=== PATIENT | male | born 1950 | race Caucasian/White ===

== ENCOUNTER 2017-09-26 19:29 | Inpatient (IN) | payer MEDICARE, OTHER ==
[~2017-09-26] VITALS: Ht 180.3 cm; Wt 102.0 kg
[~2017-09-26 19:29] MED LIST: DIAZ10TA PO; HYDR-569 PO; MECL25TA3 PO; NO HOME MEDS; ONDA4TAB6 PO
[2017-09-26 20:04] LABS: BASOPHILS % (AUTO) 0 % (0-1); EOSINOPHILS # (AUTO) 0.5 X10'3 (0-0.9); EOSINOPHILS % (AUTO) 4.9 % (0-6); HEMATOCRIT 45.8 % (42.0-52.0); HEMOGLOBIN 16.1 g/dl (14.0-17.9); LYMPHOCYTES # (AUTO) 1.7 X10'3 (1.1-4.8); MEAN CORPUSCULAR HEMOGLOBIN 35.5 PG (27.0-31.0); MEAN CORPUSCULAR HGB CONC 35.1 % (33.0-36.5); MEAN CORPUSCULAR VOLUME 101.2 FL (78-98); MEAN PLATELET VOLUME 7.3 FL (7.4-10.4); MONOCYTES # (AUTO) 0.9 X10'3 (0-0.9); MONOCYTES % (AUTO) 8.3 % (2-12); NEUTROPHILS # (AUTO) 7.2 X10'3 (1.8-7.7); NEUTROPHILS % (AUTO) 69.8 % (42-75); PLATELET COUNT 218 X10'3 (140-440); RED BLOOD COUNT 4.53 X10'6 (4.70-6.10); RED CELL DISTRIBUTION WIDTH 12.7 % (11.5-14.5); WHITE BLOOD COUNT 10.3 X10'3 (4.5-11.0)
[2017-09-26 20:27] LABS: PARTIAL THROMBOPLASTIN TIME 25 SECONDS (22-32); PROTHROMBIN TIME 10.5 SECONDS (9.0-12.0)
[2017-09-26 20:32] LABS: ALANINE AMINOTRANSFERASE 46 U/L (12-78); ALBUMIN 3.8 G/DL (3.4-5.0); ALKALINE PHOSPHATASE 110 IU/L (46-116); ANION GAP 14 (8-16); ASPARTATE AMINO TRANSFERASE 35 U/L (10-37); BILIRUBIN,TOTAL 0.3 MG/DL (0.1-1.0); BLOOD UREA NITROGEN 18 MG/DL (7-18); BUN/CREATININE RATIO 17.8 (5.4-32.0); CALCIUM 9.6 MG/DL (8.5-10.1); CHLORIDE 101 MMOL/L (99-107); CREATININE 1.01 MG/DL (0.60-1.10); GLUCOSE 100 MG/DL (70-104); POTASSIUM 3.8 MMOL/L (3.5-5.1); SODIUM 139 MMOL/L (135-145); TOTAL CARBON DIOXIDE 23.9 MMOL/L (24-32); TOTAL PROTEIN 7.6 G/DL (6.4-8.2); eGFR 74 ML/MIN
[2017-09-26] MEDS ORDERED: temazepam 15mg capsule PO PRN (21:00)
[2017-09-26] MEDS ORDERED: HYDROcodone/acetaminophen 5mg/325mg tablet PO PRN ×2 (22:00)
[2017-09-26] MEDS ORDERED: meclizine 12.5mg tablet PO PRN (22:00)
[2017-09-26] MEDS ORDERED: HYDROmorphone inj. 0.5 MG/0.5 ML DISP.SYRIN IV PRN ×2 (22:00)
[2017-09-26] MEDS ORDERED: HYDROcodone/acetaminophen 10/325mg tab PO PRN (22:00)
[2017-09-26] MEDS ORDERED: metoclopramide 5 mg/ml inj IV PRN (22:00)
[2017-09-26] MEDS ORDERED: diazepam 5mg tablet PO PRN (22:00)
[2017-09-26] MEDS ORDERED: magnesium hydroxide 30ml (MOM) UD suspension PO PRN (22:00)
[2017-09-26] MEDS ORDERED: bisacodyl 10mg suppository rectal RC PRN (22:00)
[2017-09-26] MEDS ORDERED: ondansetron 4mg rapidly disintigrating tab PO PRN (22:00)
[2017-09-26] MEDS ORDERED: morphine 2 MG/ML inj. syringe IV PRN ×2 (22:00)
[2017-09-26] MEDS ORDERED: acetaminophen 325mg tablet PO PRN ×2 (22:00)
[2017-09-26] MEDS ORDERED: diphenhydrAMINE 25mg capsule PO PRN (22:00)
[2017-09-26] MEDS ORDERED: mag hydrox/Alum hydrox/simeth 30ml oral suspension PO PRN (22:00)
[2017-09-26] MEDS ORDERED: diphenhydrAMINE 50 mg/ml inj IV PRN (22:00)
[2017-09-26] MEDS ORDERED: ondansetron/PF 4mg/2ml inj IV PRN (22:00)
[2017-09-26] MEDS ORDERED: acetaminophen 650mg rectal suppository RC PRN (22:00)
[2017-09-26] MEDS ORDERED: CYAN-19 PO (22:12)
[2017-09-26] MEDS ORDERED: LISI40TA4 PO (22:12)
[2017-09-26] MEDS ORDERED: HYDR12.55 PO (22:12)
[2017-09-26] MEDS ORDERED: METO50TA17 PO (22:12)
[2017-09-26] MEDS: cefTRIAXone 1g/NS 100ml IVPB 100 ML IV SCH (22:51)
[2017-09-26] MEDS: enoxaparin 100mg/ml syringe SUBCUT SCH (22:51)
[2017-09-26] MEDS: normal saline 1000ml 1,000 ML IV SCH (22:51)
[2017-09-26 23:17] LABS: HEMOGLOBIN A1C 5.6 % (4.5-6.2)
[2017-09-26 23:20] VITALS: BP 133/107
[2017-09-26 23:32] LABS: MAGNESIUM 1.6 MG/DL (1.5-2.4)
[2017-09-27] MEDS ORDERED: nicotine 21mg patch - 24 hr TD ONE (00:10)
[2017-09-27] MEDS: azithromycin 250mg tablet PO SCH ×2 (00:13→07:50)
[2017-09-27 02:33] LABS: BASOPHILS % (AUTO) 0.4 % (0-1); EOSINOPHILS # (AUTO) 0.6 X10'3 (0-0.9); EOSINOPHILS % (AUTO) 6.8 % (0-6); HEMATOCRIT 44.4 % (42.0-52.0); HEMOGLOBIN 15.7 g/dl (14.0-17.9); LYMPHOCYTES % (AUTO) 24.6 % (21-51); MEAN CORPUSCULAR HEMOGLOBIN 35.7 PG (27.0-31.0); MEAN CORPUSCULAR HGB CONC 35.3 % (33.0-36.5); MEAN CORPUSCULAR VOLUME 101.1 FL (78-98); MEAN PLATELET VOLUME 7.6 FL (7.4-10.4); MONOCYTES # (AUTO) 0.6 X10'3 (0-0.9); NEUTROPHILS # (AUTO) 4.9 X10'3 (1.8-7.7); NEUTROPHILS % (AUTO) 60.2 % (42-75); PLATELET COUNT 208 X10'3 (140-440); RED BLOOD COUNT 4.39 X10'6 (4.70-6.10); RED CELL DISTRIBUTION WIDTH 12.9 % (11.5-14.5); WHITE BLOOD COUNT 8.1 X10'3 (4.5-11.0)
[2017-09-27 02:35] LABS: CLARITY,URINE CLEAR (Clear); COLOR,URINE YELLOW (Yellow); GLUCOSE, URINE NEGATIVE (Neg); KETONES,URINE NEGATIVE (Neg); LEUKOCYTE ESTERASE ,URINE NEGATIVE (Neg); NITRITES, URINE NEGATIVE (Neg); OCCULT BLOOD,URINE NEGATIVE (Neg); PROTEIN,URINE NEGATIVE (Neg); UROBILINOGEN,URINE 0.2 E.U/dL (0.2-1.0)
[2017-09-27 02:36] LABS: UA COLLECTION TYPE VOIDED
[2017-09-27 02:52] LABS: ALANINE AMINOTRANSFERASE 46 U/L (12-78); ALBUMIN 3.4 G/DL (3.4-5.0); ALBUMIN/GLOBULIN RATIO 0.9 (1.1-1.5); ALKALINE PHOSPHATASE 105 IU/L (46-116); ANION GAP 11 (8-16); ASPARTATE AMINO TRANSFERASE 32 U/L (10-37); BILIRUBIN,TOTAL 0.3 MG/DL (0.1-1.0); BLOOD UREA NITROGEN 16 MG/DL (7-18); BUN/CREATININE RATIO 16.3 (5.4-32.0); CALCIUM 9.5 MG/DL (8.5-10.1); CHLORIDE 102 MMOL/L (99-107); CHOL/HDL RATIO 2.6 (0.00-4.99); CHOLESTEROL 119 MG/DL (0-200); CREATININE 0.98 MG/DL (0.60-1.10); GLUCOSE 100 MG/DL (70-104); HDL CHOLESTEROL 46 MG/DL (35-60); LDL CHOLESTEROL 49 MG/DL (50-100); POTASSIUM 3.6 MMOL/L (3.5-5.1); SODIUM 140 MMOL/L (135-145); TOTAL CARBON DIOXIDE 26.9 MMOL/L (24-32); TOTAL PROTEIN 7.2 G/DL (6.4-8.2); TRIGLYCERIDES 199 MG/DL (20-135); eGFR 77 ML/MIN
[2017-09-27] MEDS ORDERED: aminophylline 250mg/10ml inj. IV PRN (05:45)
[2017-09-27] MEDS ORDERED: nitroGLYCERIN 0.4mg SUBLingual tab SL PRN (05:45)
[2017-09-27] MEDS ORDERED: regadenoson 0.4mg/5ml syringe IV ONE (05:45)
[2017-09-27] MEDS ORDERED: metoprolol tartrate 1mg/ml inj IV PRN (05:45)
[2017-09-27 06:00] VITALS: BP 160/89
[2017-09-27] MEDS: pantoprazole 40mg Tablet.DR PO SCH (07:48)
[2017-09-27] MEDS: docusate sod 100mg capsule PO SCH ×2 (07:49→19:34)
[2017-09-27] MEDS: nicotine 21mg patch - 24 hr TD SCH (07:51)
[2017-09-27] MEDS: cefTRIAXone 1g/NS 100ml IVPB 100 ML IV SCH (07:51)
[2017-09-27] MEDS: enoxaparin 100mg/ml syringe SUBCUT SCH (07:53)
[2017-09-27] MEDS ORDERED: methylPREDNISolone sod succ 125mg/2ml vial IV SCH (08:00)
[2017-09-27 10:00] VITALS: BP 169/88
[2017-09-27] MEDS ORDERED: hyDRALAzine 10mg tablet PO PRN (10:40)
[2017-09-27] MEDS: lisinopril 20mg tablet PO SCH (11:02)
[2017-09-27] MEDS: metoprolol tartrate 50mg tablet PO SCH (11:02)
[2017-09-27] MEDS: HYDROchlorothiazide 12.5mg capsule PO SCH (11:02)
[2017-09-27 18:06] VITALS: BP 138/82
[2017-09-27 18:15] VITALS: BP 138/82
[2017-09-27 22:04] VITALS: BP 134/89
[2017-09-28 06:00] VITALS: BP 148/81
[2017-09-28 06:21] LABS: BASOPHILS % (AUTO) 0.3 % (0-1); EOSINOPHILS % (AUTO) 0.1 % (0-6); HEMATOCRIT 47.1 % (42.0-52.0); HEMOGLOBIN 16.9 g/dl (14.0-17.9); LYMPHOCYTES # (AUTO) 1.1 X10'3 (1.1-4.8); LYMPHOCYTES % (AUTO) 8.1 % (21-51); MEAN CORPUSCULAR HEMOGLOBIN 36.2 PG (27.0-31.0); MEAN CORPUSCULAR HGB CONC 35.8 % (33.0-36.5); MEAN CORPUSCULAR VOLUME 100.9 FL (78-98); MEAN PLATELET VOLUME 7.9 FL (7.4-10.4); MONOCYTES # (AUTO) 1.1 X10'3 (0-0.9); MONOCYTES % (AUTO) 7.6 % (2-12); NEUTROPHILS # (AUTO) 11.7 X10'3 (1.8-7.7); NEUTROPHILS % (AUTO) 83.9 % (42-75); PLATELET COUNT 224 X10'3 (140-440); RED BLOOD COUNT 4.66 X10'6 (4.70-6.10); RED CELL DISTRIBUTION WIDTH 12.9 % (11.5-14.5); WHITE BLOOD COUNT 13.9 X10'3 (4.5-11.0)
[2017-09-28 06:51] LABS: ALANINE AMINOTRANSFERASE 42 U/L (12-78); ALBUMIN 3.6 G/DL (3.4-5.0); ALBUMIN/GLOBULIN RATIO 0.9 (1.1-1.5); ALKALINE PHOSPHATASE 99 IU/L (46-116); ANION GAP 10 (8-16); ASPARTATE AMINO TRANSFERASE 25 U/L (10-37); BILIRUBIN,TOTAL 0.6 MG/DL (0.1-1.0); BLOOD UREA NITROGEN 18 MG/DL (7-18); BUN/CREATININE RATIO 15.7 (5.4-32.0); CALCIUM 9.8 MG/DL (8.5-10.1); CHLORIDE 103 MMOL/L (99-107); CREATININE 1.15 MG/DL (0.60-1.10); GLUCOSE 118 MG/DL (70-104); MAGNESIUM 1.6 MG/DL (1.5-2.4); POTASSIUM 4.1 MMOL/L (3.5-5.1); SODIUM 140 MMOL/L (135-145); TOTAL CARBON DIOXIDE 26.8 MMOL/L (24-32); TOTAL PROTEIN 7.7 G/DL (6.4-8.2); eGFR 64 ML/MIN
[2017-09-28] MEDS: cyanocobalamin 500mcg tablet PO SCH (07:41)
[2017-09-28] MEDS: lisinopril 20mg tablet PO SCH (07:41)
[2017-09-28] MEDS: metoprolol tartrate 50mg tablet PO SCH (07:42)
[2017-09-28] MEDS: HYDROchlorothiazide 12.5mg capsule PO SCH (07:42)
[2017-09-28] MEDS: pantoprazole 40mg Tablet.DR PO SCH (07:43)
[2017-09-28] MEDS: docusate sod 100mg capsule PO SCH ×2 (07:43→20:00)
[2017-09-28] MEDS: nicotine 21mg patch - 24 hr TD SCH (07:44)
[2017-09-28] MEDS: enoxaparin 40mg/0.4ml syringe SUBCUT SCH (07:45)
[2017-09-28 10:00] VITALS: BP 123/57
[2017-09-28] MEDS ORDERED: pneumococcal 23-VAL P-sac vacc 25 mcg/0.5ml vial IMVAC ONE (10:00)
[2017-09-28] MEDS ORDERED: FLU VACC QS2017-18 36MOS UP/PF 60 MCG/0.5 ML SYRINGE IMVAC ONE (10:00)
[2017-09-28 18:44] VITALS: BP 137/80
[2017-09-28] MEDS: normal saline 1000ml 1,000 ML IV SCH (20:01)
[2017-09-28 22:20] VITALS: BP 127/72
[2017-09-29] VITALS (7 sets, daily range): BP systolic 124–150; BP diastolic 70–82
[2017-09-29 07:00] LABS: BASOPHILS % (AUTO) 0.3 % (0-1); EOSINOPHILS # (AUTO) 0.3 X10'3 (0-0.9); EOSINOPHILS % (AUTO) 3.6 % (0-6); HEMATOCRIT 48.7 % (42.0-52.0); HEMOGLOBIN 16.9 g/dl (14.0-17.9); LYMPHOCYTES % (AUTO) 21.2 % (21-51); MEAN CORPUSCULAR HEMOGLOBIN 35.4 PG (27.0-31.0); MEAN CORPUSCULAR HGB CONC 34.8 % (33.0-36.5); MEAN CORPUSCULAR VOLUME 101.8 FL (78-98); MEAN PLATELET VOLUME 7.6 FL (7.4-10.4); MONOCYTES # (AUTO) 0.8 X10'3 (0-0.9); MONOCYTES % (AUTO) 8.1 % (2-12); NEUTROPHILS # (AUTO) 6.4 X10'3 (1.8-7.7); NEUTROPHILS % (AUTO) 66.8 % (42-75); PLATELET COUNT 218 X10'3 (140-440); RED BLOOD COUNT 4.78 X10'6 (4.70-6.10); WHITE BLOOD COUNT 9.6 X10'3 (4.5-11.0)
[2017-09-29 07:17] LABS: ALANINE AMINOTRANSFERASE 99 U/L (12-78); ALBUMIN 3.8 G/DL (3.4-5.0); ALKALINE PHOSPHATASE 99 IU/L (46-116); ANION GAP 10 (8-16); ASPARTATE AMINO TRANSFERASE 95 U/L (10-37); BILIRUBIN,TOTAL 0.6 MG/DL (0.1-1.0); BLOOD UREA NITROGEN 21 MG/DL (7-18); BUN/CREATININE RATIO 19.1 (5.4-32.0); CALCIUM 9.8 MG/DL (8.5-10.1); CHLORIDE 102 MMOL/L (99-107); GLUCOSE 90 MG/DL (70-104); MAGNESIUM 1.9 MG/DL (1.5-2.4); POTASSIUM 4.2 MMOL/L (3.5-5.1); SODIUM 139 MMOL/L (135-145); TOTAL CARBON DIOXIDE 26.6 MMOL/L (24-32); TOTAL PROTEIN 7.7 G/DL (6.4-8.2); eGFR 67 ML/MIN
[2017-09-29] MEDS: pantoprazole 40mg Tablet.DR PO SCH (07:30)
[2017-09-29] MEDS: lisinopril 20mg tablet PO SCH (08:00)
[2017-09-29] MEDS: enoxaparin 40mg/0.4ml syringe SUBCUT SCH (08:00)
[2017-09-29] MEDS: HYDROchlorothiazide 12.5mg capsule PO SCH (08:00)
[2017-09-29] MEDS: docusate sod 100mg capsule PO SCH (08:00)
[2017-09-29] MEDS: metoprolol tartrate 50mg tablet PO SCH (08:00)
[2017-09-29] MEDS: cyanocobalamin 500mcg tablet PO SCH (08:00)
[2017-09-29] MEDS ORDERED: fentaNYL/PF 50MCG/1 ML 2ML syringe ONE (09:00)
[2017-09-29] MEDS ORDERED: diphenhydrAMINE 50 mg/ml inj ONE (09:00)
[2017-09-29] MEDS ORDERED: midazolam 2 mg/2 ml injection ONE (09:01)
[2017-09-29] MEDS ORDERED: proCHLORperazine 10 MG/2 ml inj IV PRN (10:10)
[2017-09-29] MEDS ORDERED: HYDROcodone/acetaminophen 10/325mg tab PO PRN ×2 (10:10)
[2017-09-29] MEDS ORDERED: HYDROcodone/acetaminophen 5mg/325mg tablet PO PRN ×2 (10:10)
[2017-09-29] MEDS ORDERED: ondansetron/PF 4mg/2ml inj IV PRN ×2 (10:10)
[2017-09-29] MEDS ORDERED: OXAZEpam 15mg capsule PO PRN ×2 (10:10)
[2017-09-29] MEDS ORDERED: normal saline 1000ml 1,000 ML IV SCH (10:10)
[2017-09-29] MEDS: nicotine 21mg patch - 24 hr TD SCH (10:44)
[2017-09-29] MEDS ORDERED: lisinopril 20mg tablet PO ONE (14:55)
[2017-09-29] MEDS ORDERED: LISI-600 PO (17:59)
[2017-09-30] MEDS ORDERED: lisinopril 20mg tablet PO SCH ×2 (08:00)
== END 2017-09-29 18:20 | disposition home or self-care (01) | DRG 287 ==
LOC: ER 19:30 → ED HOLD 22:00 → ORTHO 4S 23:10
PROVIDERS: ADMIT Family Medicine; ATTEND Internal Medicine
PROC: 4A023N7 Measurement of Cardiac Sampling and Pressure, Left Heart, Percutaneous Approach (ICD-10-PCS; principal; 2017-09-29)
PROC: B2111ZZ Fluoroscopy of Multiple Coronary Arteries using Low Osmolar Contrast (ICD-10-PCS; 2017-09-29)
PROC: B2151ZZ Fluoroscopy of Left Heart using Low Osmolar Contrast (ICD-10-PCS; 2017-09-29)
PROC: B41F1ZZ Fluoroscopy of Right Lower Extremity Arteries using Low Osmolar Contrast (ICD-10-PCS; 2017-09-29)
DX: R07.9 Chest pain, unspecified (principal); J44.1 Chronic obstructive pulmonary disease with (acute) exacerbation; R55 Syncope and collapse; I10 Essential (primary) hypertension; E86.0 Dehydration; F10.10 Alcohol abuse, uncomplicated; F17.210 Nicotine dependence, cigarettes, uncomplicated; Z79.899 Other long term (current) drug therapy; Z23 Encounter for immunization
CPT/HCPCS: 36415; 71045; 80053; 80061; 81003; 83036; 83735; 83880; 84443; 84484; 85025; 85379; 85610; 85730; 87070; 90732; 93005; 93458; 93880; 94667; 94760; 99152; 99153; 99285; A4620; A6257; C1760; C1769; J0280; J0696; J1200; J1650; J2250; J2930; J3010; J3420; J3490; J7030; Q0163; Q2037

== ENCOUNTER 2017-09-29 08:57 | Outpatient (CLI) | payer MEDICARE, OTHER ==
[~2017-09-29 08:57] MED LIST changes: +CYAN-19 PO; -DIAZ10TA PO; -HYDR-569 PO; +HYDR12.55 PO; +LIDOcaine 1%/PF (10mg/ml) 5ml vial ONE; +LISI40TA4 PO; -MECL25TA3 PO; +METO50TA17 PO; -NO HOME MEDS; -ONDA4TAB6 PO; +heparin 1,000 UNITS/NS 500ml 500 ML ONE; +iohexol 350 MG/ML 50ML vial IV ONE; +iohexol 350MG/ML 100ml bottle IV ONE
[2017-09-29] MEDS ORDERED: LISI-600 PO (17:59)
== END 2017-09-29 08:58 | disposition home or self-care (01) ==
LOC: EDSEX → SSTAY O 08:57
PROVIDERS: ATTEND Internal Medicine Cardiovascular Disease
DX: R94.39 Abnormal result of other cardiovascular function study (principal)
CPT/HCPCS: J1644; J2001; Q9967

== ENCOUNTER 2019-08-14 23:27 | Emergency (ER) | payer MEDICARE, OTHER ==
[~2019-08-14] VITALS: Ht 180.3 cm; Wt 104.0 kg
[~2019-08-14 23:27] MED LIST changes: -CYAN-19 PO; +CYAN-51 PO; -HYDR12.55 PO; -LIDOcaine 1%/PF (10mg/ml) 5ml vial ONE; +LISI-600 PO; -LISI40TA4 PO; -heparin 1,000 UNITS/NS 500ml 500 ML ONE; -iohexol 350 MG/ML 50ML vial IV ONE; -iohexol 350MG/ML 100ml bottle IV ONE
[2019-08-15 00:01] LABS: ALANINE AMINOTRANSFERASE 42 U/L (12-78); ALBUMIN 3.5 G/DL (3.4-5.0); ALKALINE PHOSPHATASE 108 IU/L (46-116); ANION GAP 11 (8-16); ASPARTATE AMINO TRANSFERASE 33 U/L (10-37); BILIRUBIN,TOTAL 0.3 MG/DL (0.1-1.0); BLOOD UREA NITROGEN 10 MG/DL (7-18); BUN/CREATININE RATIO 11.5 (5.4-32.0); CALCIUM 8.2 MG/DL (8.5-10.1); CHLORIDE 103 MMOL/L (99-107); CREATININE 0.87 MG/DL (0.60-1.10); GLUCOSE 108 MG/DL (70-104); POTASSIUM 3.7 MMOL/L (3.5-5.1); SODIUM 138 MMOL/L (135-145); TOTAL CARBON DIOXIDE 24.5 MMOL/L (24-32); eGFR 88 ML/MIN
[2019-08-15 00:05] LABS: BASOPHILS # (AUTO) 0.1 X10'3 (0-0.2); BASOPHILS % (AUTO) 0.9 % (0-1); EOSINOPHILS # (AUTO) 0.6 X10'3 (0-0.9); EOSINOPHILS % (AUTO) 5.8 % (0-6); HEMATOCRIT 47.6 % (42.0-52.0); LYMPHOCYTES # (AUTO) 2.7 X10'3 (1.1-4.8); LYMPHOCYTES % (AUTO) 27.2 % (21-51); MEAN CORPUSCULAR HEMOGLOBIN 37.6 PG (27.0-31.0); MEAN CORPUSCULAR HGB CONC 35.7 g/dL (33.0-36.5); MEAN CORPUSCULAR VOLUME 105.4 FL (78-98); MEAN PLATELET VOLUME 7.3 FL (7.4-10.4); MONOCYTES # (AUTO) 1.1 X10'3 (0-0.9); MONOCYTES % (AUTO) 11.1 % (2-12); NEUTROPHILS # (AUTO) 5.5 X10'3 (1.8-7.7); PLATELET COUNT 200 X10'3 (140-440); RED BLOOD COUNT 4.51 X10'6 (4.70-6.10); RED CELL DISTRIBUTION WIDTH 14.4 % (11.5-14.5)
--- NOTE | 2019-08-15 00:06 | NUR ---
Connie, patient's daughter: home [phone], cell [phone].
--- NOTE | 2019-08-15 00:07 | NUR ---
Leif, Patient's neighbor and close friend contact number [phone].
[2019-08-15 00:30] LABS: LIPASE 233 U/L (73-393)
--- NOTE | 2019-08-15 00:30 | NUR ---
PATIENT IN BED EYES CLOSED COVERS ON RR EVEN UN LABORED NO OBSERVABLE S/S OF ACUTE STRESS AT THIS TIME WILL CONTINUE TO MONITOR
[2019-08-15] MEDS ORDERED: ipratropium/albuterol 3ml nebule NEB ONE (00:35)
[2019-08-15] MEDS ORDERED: predniSONE 20 mg tablet PO ONE (00:35)
[2019-08-15] MEDS ORDERED: METO50TA17 PO (02:00)
[2019-08-15] MEDS ORDERED: LISI-600 PO (02:00)
--- NOTE | 2019-08-15 02:11 | NUR ---
PATIENT IN BED EYES CLOSED RR EVEN UN LABORED COVERS ON NO OBSERVABLE S/S OF ACUTE STRESS AT THIS TIME
[2019-08-15 02:50] VITALS: BP 111/59
== END 2019-08-15 03:14 | disposition home or self-care (01) ==
LOC: ER 23:28
DX: R55 Syncope and collapse (principal); F10.929 Alcohol use, unspecified with intoxication, unspecified; R07.89 Other chest pain; I10 Essential (primary) hypertension; F12.90 Cannabis use, unspecified, uncomplicated; F17.200 Nicotine dependence, unspecified, uncomplicated; Z56.0 Unemployment, unspecified; Z79.899 Other long term (current) drug therapy; Y90.9 Presence of alcohol in blood, level not specified
CPT/HCPCS: 36415; 70450; 71045; 72125; 80053; 83690; 84484; 85025; 85379; 93005; 94640; 99284; J7512; 94760

== ENCOUNTER 2023-03-11 07:03 | Inpatient (IN) | payer MEDICARE, MEDICAID ==
[2023-03-04 16:45] LABS: BILIRUBIN,URINE NEGATIVE (Neg); CLARITY,URINE CLEAR (Clear); COLOR,URINE YELLOW (Yellow); GLUCOSE, URINE >=1000 mg/dl (Neg); KETONES,URINE NEGATIVE (Neg); LEUKOCYTE ESTERASE ,URINE NEGATIVE (Neg); NITRITES, URINE NEGATIVE (Neg); OCCULT BLOOD,URINE NEGATIVE (Neg); PH,URINE 5.5 (4.8-8.0); PROTEIN,URINE NEGATIVE (Neg); UROBILINOGEN,URINE 0.2 E.U/dL (0.2-1.0)
[2023-03-04 16:50] LABS: UA COLLECTION TYPE CLN CATCH MIDSTREAM
[2023-03-04 16:52] LABS: SQUAMOUS EPITHELIAL CELL,UR FEW /LPF (FEW)
[2023-03-04 16:53] LABS: WBC,URINE 0-4 /HPF (0-4)
[2023-03-04 16:54] LABS: RBC,URINE NONE SEEN /HPF (0-2)
[2023-03-04 16:57] LABS: BACTERIA,URINE NONE SEEN /HPF (Neg); BASOPHILS # (AUTO) 0.1 X10'3 (0-0.2); BASOPHILS % (AUTO) 0.8 % (0-1); EOSINOPHILS # (AUTO) 0.4 X10'3 (0-0.9); EOSINOPHILS % (AUTO) 4.9 % (0-6); LYMPHOCYTES # (AUTO) 1.8 X10'3 (1.1-4.8); MEAN CORPUSCULAR HEMOGLOBIN 30.4 PG (27.0-31.0); MEAN CORPUSCULAR HGB CONC 33.6 g/dL (33.0-36.5); MEAN CORPUSCULAR VOLUME 90.4 FL (78-98); MEAN PLATELET VOLUME 7.8 FL (7.4-10.4); MONOCYTES # (AUTO) 0.7 X10'3 (0-0.9); MONOCYTES % (AUTO) 8.5 % (2-12); NEUTROPHILS # (AUTO) 5.8 X10'3 (1.8-7.7); NEUTROPHILS % (AUTO) 65.8 % (42-75); PRE OP HEMATOCRIT 49.5 % (42.0-52.0); PRE OP HEMOGLOBIN 16.6 g/dL (14.0-17.9); PRE OP PLATELET COUNT 255 X10'3 (140-440); PRE OP WHITE BLOOD COUNT 8.8 10'3 (4.8-10.8); RED BLOOD COUNT 5.47 X10'6 (4.70-6.10); RED CELL DISTRIBUTION WIDTH 14.7 % (11.5-14.5)
[2023-03-04 17:01] LABS: ALBUMIN 4.1 G/DL (3.4-5.0); ALBUMIN/GLOBULIN RATIO 1.1 (1.1-1.5); ALKALINE PHOSPHATASE 133 IU/L (46-116); BLOOD UREA NITROGEN 19 MG/DL (7-18); BUN/CREATININE RATIO 18.3 (10.0-20.0); CALCIUM 9.8 MG/DL (8.5-10.1); CHLORIDE 105 MMOL/L (99-107); CREATININE 1.04 MG/DL (0.60-1.10); PRE OP ALT 28 U/L (30-65); PRE OP ANION GAP 12 (8-16); PRE OP AST 16 U/L (10-37); PRE OP BILIRUB, TOTAL 0.5 MG/DL (0.0-1.0); PRE OP GLUCOSE 114 MG/DL (70-104); PRE OP POTASSIUM 3.7 MMOL/L (3.4-5.1); PRE OP SODIUM 143 MMOL/L (135-145); TOTAL CARBON DIOXIDE 25.7 MMOL/L (24-32); eGFR 71 ML/MIN
[2023-03-11] VITALS (20 sets, daily range): BP systolic 105–134; BP diastolic 56–76; PULSE 47–93; RESP 13–64; TEMP 97.6–97.9; O2SAT 94–98
[~2023-03-11] VITALS: Ht 175.3 cm; Wt 110.2 kg
[2023-03-11] MEDS: potassium cl 20mEq in 1/2 NS 1,000 ML IV SCH ×3 (06:40→22:40)
[~2023-03-11 07:03] MED LIST changes: +ALLO100T PO; +CHOL20002 PO; -CYAN-51 PO; +DEXTROSE 15 GM of carb/4 tabs (each vial/BOTTLE has 4 tablets) PO PRN; +DOCUMENT DATE & TIME OF BETA-BLOCKER PO ONE; +EMPA25TA PO; +HYDROcodone/acetaminophen 10/325mg tab PO PRN; +HYDROmorphone 1 mg/ml syringe IV PRN; +HYDROmorphone inj. 0.5 MG/0.5 ML DISP.SYRIN IV PRN; -LISI-600 PO; +LISI5TAB22 PO; +MESSAGE TO PHARMACY PO ONE; +METO50TA16 PO; -METO50TA17 PO; +TRAM50TA2 PO; +VANCOMYCIN 1,500MG inj. 1,500 MG in normal saline 500ml IV soln 300 ML IV ONE; +acetaminophen 325mg tablet PO ONE; +acetaminophen 325mg tablet PO PRN; +bisacodyl 10mg suppository rectal RC PRN; +celeCOXIB 100mg capsule PO ONE; +dextrose 50%-water 50ml dispensing syringe IV PRN; +diphenhydrAMINE 25mg capsule PO PRN; +famotidine 20mg tablet PO ONE; +gabapentin 300mg capsule PO ONE; +glucagon, human recombinant 1mg kit SUBCUT PRN; +insulin Lispro (HumaLOG) vial - multi-dose SQ SCH; +magnesium hydroxide 30ml (MOM) UD suspension PO PRN; +metoclopramide 5 mg/ml inj IV ONE; +naloxone 0.4 mg/ml inj IV PRN; +ondansetron/PF 4mg/2ml inj IV PRN; +oxyCODONE SR 10mg (sust. release) tab PO ONE; +tranexamic acid inj. 1,090 MG in normal saline 100ml IV soln 89.1 ML IV ONE
[2023-03-11] MEDS: aspirin 325mg tablet PO SCH (08:30)
[2023-03-11] MEDS: ringers solution, lacted 1,000 ML IV SCH ×3 (09:19→15:50)
[2023-03-11] MEDS ORDERED: vancomycin 1,000mg inj ONE (09:43)
[2023-03-11] MEDS ORDERED: ROPIVAcaine 0.5% (5mg/ml) 30ml vial ONE ×2 (09:43→10:38)
[2023-03-11] MEDS ORDERED: cloNIDine hcl/PF 100mcg/ml inj ONE (09:43)
[2023-03-11] MEDS ORDERED: epiNEPHrine 1 mg/ml inj ONE (09:43)
[2023-03-11] MEDS ORDERED: ondansetron/PF 4mg/2ml inj IV PRN (10:00)
[2023-03-11] MEDS ORDERED: ringers solution, lacted 1,000 ML IV SCH (10:00)
[2023-03-11] MEDS ORDERED: ROPIVAcaine 0.2%/PF PUMP/bolus 545 ML ADDCANAL SCH (10:00)
[2023-03-11] MEDS ORDERED: proCHLORperazine 10 MG/2 ml inj IV PRN (10:00)
[2023-03-11] MEDS ORDERED: ROPIVAcaine 0.2% (10 MG/5 ML) BOLUS INJECTION ADDCANAL PRN (10:00)
[2023-03-11] MEDS ORDERED: meperidine/PF 25mg/ml syringe IV PRN ×3 (10:00)
[2023-03-11] MEDS ORDERED: morphine 4 MG/ML inj SYRINge IV PRN (10:00)
[2023-03-11] MEDS ORDERED: morphine 2 MG/ML inj. syringe IV PRN (10:00)
[2023-03-11] MEDS ORDERED: fentaNYL/PF 50MCG/1 ML 2ML syringe ONE (10:08)
[2023-03-11] MEDS ORDERED: midazolam 1 mg/ML 2ml injection ONE (10:08)
[2023-03-11] MEDS ORDERED: ePHEDrine 50MG/ML INJ. ONE (10:38)
[2023-03-11] MEDS ORDERED: BUPIVAcaine/PF 7.5mg/ml (0.75%) 10ml vial ONE (10:38)
[2023-03-11] MEDS ORDERED: propofol inj 20 ML IV ONE (10:38)
[2023-03-11] MEDS ORDERED: LIDOcaine 1%/PF 5ML 10 MG/ML VIAL ONE (10:38)
--- NOTE | 2023-03-11 10:45 | NUR ---
CMS NOTE- PT STATES HE SHOWERED X5 DAYS WITH HIBICLENS. MD DOES NOT ORDER MUPIROCIN OINTMENT. PT EDUCATED ON ON-Q. PT HAS BILAT PALPABLE DORSALIS PEDIS PULSES. PT STATES HE READ BOOKLET AND HAS BEEN EDUCATED ON USE OF IS
[2023-03-11] MEDS ORDERED: MIDAZolam 1 MG/ML 5ML VIAL ONE (10:52)
--- NOTE | 2023-03-11 12:20 | NUR ---
Received from OR via BED, accompanied by Anesthesiologist and report given by Anesthesiologist. PATIENT WAKING UP, NO S/S OF PAIN, V/S WNL, SCD ON, 20G TO RUE, ABIEL drsg to LEFT KNEE CDI with ON Q BALL AT 4ML/HR.
--- NOTE | 2023-03-11 13:40 | NUR ---
PATIENT A&OX4, DENIES PAIN, V/S WNL, SCD ON, 20G TO RUE, ABIEL drsg to LEFT KNEE CDI with ON Q BALL AT 4ML/HR. PATIENT TAKEN TO PAS. REPORT GIVEN TO PAS RN WHO HAS TAKEN OVER PATIENT Care. patient also hooked up to monitors in room and has all belongings with him.
--- NOTE | 2023-03-11 14:00 | NUR ---
Patient in room ORTHO 4012. I have received report from Recovery and had the opportunity to ask questions and assume patient care.
[2023-03-11] MEDS: gabapentin 300mg capsule PO SCH ×2 (14:18→20:10)
[2023-03-11] MEDS ORDERED: tranexamic acid inj. 1,090 MG in normal saline 100ml IV soln 100 ML IV ONE (15:00)
--- NOTE | 2023-03-11 18:00 | NUR ---
Patient dtr was upset on how long it took to get patient pain medications. I apologize to her and let her know I had an emergency in another room and I got her him as soon as I could. I educated both dtr and patient on his on que increase. Elevated patient leg and put pillow under ankle. Patient dtr is still unhappy, patient is understandable.
[2023-03-11] MEDS: cefazolin 2gm/D5W 100mL 100 ML IV SCH ×2 (18:08→23:16)
--- NOTE | 2023-03-11 18:59 | NUR ---
Problems reprioritized. Patient report given, questions answered & plan of care reviewed with sybil COLIN.
--- NOTE | 2023-03-11 19:00 | NUR ---
Patient in room ORTHO 4012. I have received report from CRISTI FRIEDMAN and had the opportunity to ask questions and assume patient care.
[2023-03-11] MEDS ORDERED: VANCOMYCIN 1,500MG inj. 1,500 MG in normal saline 500ml IV soln 300 ML IV ONE (20:00)
[2023-03-11] MEDS: ascorbic acid 500mg tablet PO SCH (20:10)
[2023-03-11] MEDS: metoprolol tartrate 50mg tablet PO SCH (20:10)
[2023-03-11] MEDS ORDERED: sennosides 8.6mg tablet PO SCH (21:00)
[2023-03-11] MEDS ORDERED: insulin glargine (Lantus) pen - multi-dose SQ SCH (21:00)
[2023-03-11] MEDS ORDERED: diphenhydrAMINE 25mg capsule PO PRN (21:00)
[2023-03-12 02:00] VITALS: BP 124/60; PULSE 59; RESP 18; TEMP 97.8; O2SAT 94
[2023-03-12] MEDS: HYDROcodone/acetaminophen 10/325mg tab PO PRN ×3 (05:18→16:45)
[2023-03-12] MEDS: potassium cl 20mEq in 1/2 NS 1,000 ML IV SCH (05:22)
--- NOTE | 2023-03-12 06:42 | NUR ---
Problems reprioritized. Patient report given, questions answered & plan of care reviewed with CRISTI Cristina.
[2023-03-12 06:53] VITALS: BP 126/61; PULSE 62; RESP 14; TEMP 98.9; O2SAT 93
[2023-03-12 07:52] LABS: BASOPHILS % (AUTO) 0.2 % (0-1); EOSINOPHILS % (AUTO) 0.1 % (0-6); HEMOGLOBIN 15.4 g/dl (14.0-17.9); LYMPHOCYTES # (AUTO) 0.9 X10'3 (1.1-4.8); LYMPHOCYTES % (AUTO) 4.8 % (21-51); MEAN CORPUSCULAR HEMOGLOBIN 30.2 PG (27.0-31.0); MEAN CORPUSCULAR HGB CONC 33.5 g/dL (33.0-36.5); MEAN CORPUSCULAR VOLUME 90.1 FL (78-98); MEAN PLATELET VOLUME 8.1 FL (7.4-10.4); MONOCYTES # (AUTO) 1.4 X10'3 (0-0.9); MONOCYTES % (AUTO) 7.1 % (2-12); NEUTROPHILS # (AUTO) 16.7 X10'3 (1.8-7.7); NEUTROPHILS % (AUTO) 87.8 % (42-75); PLATELET COUNT 231 X10'3 (140-440); RED CELL DISTRIBUTION WIDTH 14.5 % (11.5-14.5); WHITE BLOOD COUNT 19.1 X10'3 (4.5-11.0)
[2023-03-12 08:00] VITALS: RESP 16
[2023-03-12] MEDS ORDERED: allopurinol 100mg tablet PO SCH (08:00)
[2023-03-12] MEDS ORDERED: multivitamins, therapeutics tablet PO SCH (08:00)
[2023-03-12] MEDS ORDERED: lisinopril 5mg tablet PO SCH (08:00)
[2023-03-12] MEDS: metoprolol tartrate 50mg tablet PO SCH (08:07)
[2023-03-12] MEDS: ascorbic acid 500mg tablet PO SCH (08:07)
[2023-03-12] MEDS: cefazolin 2gm/D5W 100mL 100 ML IV SCH (08:07)
[2023-03-12 08:08] LABS: ANION GAP 12 (8-16); CHLORIDE 104 MMOL/L (99-107); POTASSIUM 4.5 MMOL/L (3.5-5.1); SODIUM 138 MMOL/L (135-145); TOTAL CARBON DIOXIDE 21.7 MMOL/L (24-32)
[2023-03-12] MEDS: aspirin 325mg tablet PO SCH (08:08)
[2023-03-12] MEDS: gabapentin 300mg capsule PO SCH ×2 (08:08→12:13)
[2023-03-12 10:00] VITALS: BP 115/56; PULSE 66; RESP 14; TEMP 98.1; O2SAT 92
--- NOTE | 2023-03-12 11:31 | NUR ---
Joint surgery consult: Pt s/p knee surgery per EMR. Pt seen at bedside and provided written/verbal high protein nutrition education. RD contact also provided and encouraged pt to reach out for any nutrition question or concerns. Addendum: 03/12/23 at [address] Amended: Links added.
[2023-03-12] MEDS ORDERED: LIDOcaine 1%/PF 5ML 10 MG/ML VIAL SQ ONE (12:30)
[2023-03-12] MEDS ORDERED: triamcinolone acetonide 40mg/ml inj IM ONE (12:30)
[2023-03-12] MEDS ORDERED: GABA300C PO (13:44)
[2023-03-12] MEDS ORDERED: DULO30CA52 PO (13:44)
[2023-03-12] MEDS ORDERED: CELE-85 PO (13:44)
[2023-03-12] MEDS ORDERED: ASPI-1397 PO (13:44)
[2023-03-12 16:45] VITALS: RESP 16
[2023-03-12] MEDS ORDERED: celeCOXIB 100mg capsule PO SCH (20:00)
== END 2023-03-12 16:54 | disposition home health service (06) | DRG 470 ==
LOC: PAS 07:03 → ORTHO 4S 16:12
PROVIDERS: ADMIT Orthopaedic Surgery; ATTEND Orthopaedic Surgery
PROC: 3E0T3BZ Introduction of Anesthetic Agent into Peripheral Nerves and Plexi, Percutaneous Approach (ICD-10-PCS; 2023-03-11)
PROC: 3E0T33Z Introduction of Anti-inflammatory into Peripheral Nerves and Plexi, Percutaneous Approach (ICD-10-PCS; 2023-03-11)
PROC: 0SRD0J9 Replacement of Left Knee Joint with Synthetic Substitute, Cemented, Open Approach (ICD-10-PCS; principal; 2023-03-11 09:52)
PROC: 3E0U33Z Introduction of Anti-inflammatory into Joints, Percutaneous Approach (ICD-10-PCS; 2023-03-12)
DX: M17.0 Bilateral primary osteoarthritis of knee (principal); M21.162 Varus deformity, not elsewhere classified, left knee
CPT/HCPCS: 36415; 71046; 73560; 80051; 80053; 81001; 82948; 83036; 85025; 86885; 86900; 86901; 87081; 93005; 97110; 97116; 97161; 97530; A4215; A6449; A7000; C1713; C1776; G0378; J0171; J0690; J0735; J1815; J2250; J2704; J2765; J2795; J3010; J3370; J3480; J3490; J7040; J7120